=== PATIENT | male | born 1985 | race African-American/Black ===

== ENCOUNTER 2018-06-16 14:46 | Emergency (ER) | payer SELFPAY ==
[~2018-06-16] VITALS: Ht 185.4 cm; Wt 79.0 kg
[2018-06-16 20:52] VITALS: BP 114/66
== END 2018-06-16 20:54 | disposition home or self-care (01) ==
LOC: ER 14:46
DX: S20.211A Contusion of right front wall of thorax, initial encounter (principal); F12.10 Cannabis abuse, uncomplicated; F17.200 Nicotine dependence, unspecified, uncomplicated; Z98.890 Other specified postprocedural states; W22.8XXA Striking against or struck by other objects, initial encounter; Y93.89 Activity, other specified; Y92.89 Other specified places as the place of occurrence of the external cause; Y99.8 Other external cause status
CPT/HCPCS: 71100; 99283